=== PATIENT | female | born 1950 | race Caucasian/White ===

== ENCOUNTER 2017-02-07 10:07 | Emergency (ER) | payer MEDICARE ==
[~2017-02-07] VITALS: Ht 157.5 cm; Wt 86.3 kg
[~2017-02-07 10:07] MED LIST: AMLO5TAB4 PO; ESCI20TA10 PO; GABAPENTIN PO; HYDR12.53 PO; LEVOTHYROXINE PO; LOSARTAN PO; POTASSIUM CHLORIDE PO; VITAMIN B PO
[2017-02-07] MEDS ORDERED: LIDOCAINE 1%, 20ML ONE ×2 (10:57→13:10)
[2017-02-07] MEDS ORDERED: ONDANSETRON ODT 4 MG ONE (10:57)
[2017-02-07] MEDS ORDERED: OXYcodone/APAP 5/325MG TABLET ONE (10:58)
[2017-02-07] MEDS ORDERED: DIPH,PERTUSS(ACELL),TET VAC/PF 0.5 ML IM-VACC ONE ×2 (10:58→11:00)
[2017-02-07] MEDS ORDERED: OXYcodone/APAP 5/325MG TABLET PO ONE (11:00)
[2017-02-07] MEDS ORDERED: LIDOCAINE 1%, 20ML SQ ONE (11:00)
[2017-02-07] MEDS ORDERED: ONDANSETRON ODT 4 MG PO ONE (11:00)
[2017-02-07] MEDS ORDERED: CEFAZOLIN 1,000 MG IM ONE (12:30)
[2017-02-07] MEDS ORDERED: CEFAZOLIN 1,000 MG ONE (13:10)
[2017-02-07 13:50] VITALS: BP 132/70
== END 2017-02-07 13:52 | disposition home or self-care (01) ==
LOC: ED 13:26
DX: S81.012A Laceration without foreign body, left knee, initial encounter (principal); S00.93XA Contusion of unspecified part of head, initial encounter; E78.00 Pure hypercholesterolemia, unspecified; I10 Essential (primary) hypertension; Z96.652 Presence of left artificial knee joint; W18.30XA Fall on same level, unspecified, initial encounter; Y93.01 Activity, walking, marching and hiking; Y92.098 Other place in other non-institutional residence as the place of occurrence of the external cause; Y99.8 Other external cause status
CPT/HCPCS: 13121; 13122; 70450; 73552; 73564; 90471; 90715; 96372; 99285; J0690; J3490; Q0162